=== PATIENT | female | born 1975 | race Caucasian/White ===

== ENCOUNTER 2018-08-12 13:40 | Emergency (ER) | payer BC, MEDICARE ==
[~2018-08-12] VITALS: Ht 162.6 cm; Wt 76.8 kg
--- OUTSIDE RECORDS SUMMARY | ~2018-08-12 | XMS | Encounter Summary ---
Demographics + + + | Address | [address] | | | [place] [address] | + + + | Home Phone | | + + + | Preferred Language | Unknown | + + + | Marital Status | | + + + | Druze Affiliation | Unknown | + + + | Race | Unknown | + + + | Ethnic Group | Unknown | + + + Author + + + | Author | [facility] | + + + | Organization | [facility] | + + + | Address | Unknown | + + + | Phone | Unavailable | + + + Support + + +---------+ + | Name | Relationship | Address | Phone | + + +---------+ + | Kannan Orourke | ECON | Unknown | | + + +---------+ + | Heike Orourke | ECON | Unknown | | + + +---------+ + | Gricelda Tubbs | ECON | Unknown | | + + +---------+ + | Luciana,Sherron | ECON | Unknown | | + + +---------+ + Care Team Providers + +------+ + | Care Motor Bus Driver Name | Role | Phone | + +------+ + | Dax Solis MD | PCP | | + +------+ + Encounter Details +--------+ + + + + | Date | Type | Department | Care Team | Description | +--------+ + + + + | 06/13/ | Telephone | [facility] | Abena Dent MD | | | 2018 | | Endocrinology [address] | [address] | | | | | [address] | [place], [place] | | | | | [place], [place] | [address] | | | | | [address] | | | | | | [phone] | | | +--------+ + + + + Social History + +-------+ +--------+------+ | Tobacco Use | Types | Packs/Day | Years | Date | | | | | Used | | + +-------+ +--------+------+ | Never Smoker | | | | | + +-------+ +--------+------+ + +---+---+---+ | Smokeless Tobacco: | | | | | Never Used | | | | + +---+---+---+ + + + | Sex Assigned at | Date Recorded | | | | + + + | Not on file | | + + + as of this encounter Plan of Treatment Not on fileas of this encounter Visit Diagnoses Not on filein this encounter"
--- OUTSIDE RECORDS SUMMARY | ~2018-08-12 | XMS | Encounter Summary ---
Demographics + + + | Address | [address] | | | [place] [address] | + + + | Home Phone | | + + + | Preferred Language | Unknown | + + + | Marital Status | | + + + | Protestant Affiliation | Unknown | + + + | Race | Unknown | + + + | Ethnic Group | Unknown | + + + Author + + + | Author | [facility] | + + + | Organization [...] Team Providers + +------+ + | Care Human Resources Office Manager Name | Role | Phone | + +------+ + | Alma Larson PA-C | PCP | | + +------+ + Reason for Visit + + + | Reason | Comments | + + + | Labs Only | DOS 10/01/2017 | + + + Encounter Details +--------+ + + + + | Date | Type | Department | Care Team | Description | +--------+ + + + + | 05/20/ | Documentati | [facility] | Mariah Enciso | Labs Only (DOS | | 2019 | on Only | Endocrinology [address] | TELEGRAPHIC SERVICE DISPATCHER | 10/01/2017) | | | | [address] | | | | | | [place] | | | | | | [address] | | | | | | [phone] | | | +--------+ + + + [...]
--- OUTSIDE RECORDS SUMMARY | ~2018-08-12 | XMS | Clinical Summary ---
Demographics + + + | Address | [address] | | | [place] [address] | + + + | Home Phone | | + + + | Preferred Language | Unknown | + + + | Marital Status | | + + + | Confucianism Affiliation | Unknown | + + + | Race | Unknown | + + + | Ethnic Group | Unknown | + + + Author + + + | Author | [facility] | + + + | Organization | [facility] | + + + | Address | Unknown | + + + | Phone | Unavailable | + + + Support + + +---------+ + | Name | Relationship | Address | Phone | + + +---------+ + | Kannan Mcdonald | ECON | Unknown | | + + +---------+ + | Heike Mcdonald | ECON | Unknown | | + + +---------+ + | Gricelda Tubbs | ECON | Unknown | | + + +---------+ + | Detailed,Message | ECON | Unknown | | + + +---------+ + Care Team Providers + +------+ + | Care Group Reservations Coordinator Name | Role | Phone | + +------+ + | Dax Solis MD | PP | | + +------+ + Allergies + + + + + + | Active Allergy | Reactions | Severity | Noted | Comments | | | | | Date | | + + + + + + | Bee Venom | Swelling | Medium | 06/10/19 | | | | | | 19 | | + + + + + + | Doxycycline | Other (See Comments) | Medium | 02/29/20 | unknown | | | | | 15 | | + + + + + + | Hydrocodone | Other (See Comments) | Medium | // | vomit | | | | | 15 | | + + + + + + | Oyster Extract | Rash | Medium | 10/24/19 | | | | | | 11 | | + + + + + + | Penicillins | Other (See Comments) | Medium | //20 | Unknown | | | | | 15 | | + + + + + + | Sulfa Antibiotics | Other (See Comments) | Medium | 02/29/20 | Unknown | | | | | 15 | | + + + + + + Current Medications + + +---------+---------+------+------+-------+ | Prescription | Sig. | Disp. | Refills | Star | End | Statu | | | | | | t | Date | s | | | | | | Date | | | + + +---------+---------+------+------+-------+ | montelukast | Take 10 mg by mouth | | | | | Activ | | (SINGULAIR) 10 MG | nightly. | | | | | e | | tablet | | | | | | | + + +---------+---------+------+------+-------+ | letrozole (FEMARA) | Take 2.5 mg by mouth | | | | | Activ | | 2.5 MG tablet | daily. | | | | | e | + + +---------+---------+------+------+-------+ | Pseudoephedrine | Take by mouth. | | | | | Activ | | HCl 240 MG TB24 | | | | | | e | + + +---------+---------+------+------+-------+ | Zoledronic Acid | Inject into the | | | | | Activ | | (ZOMETA IV) | vein. | | | | | e | + + +---------+---------+------+------+-------+ | naproxen sodium | Take 220 mg by mouth | | | | | Activ | | (ANAPROX) 220 MG | 2 (two) times daily | | | | | e | | tablet | with meals. | | | | | | + + +---------+---------+------+------+-------+ | levothyroxine | Take 1 tablet by | 100 | 3 | 11/0 | 11/0 | Activ | | (SYNTHROID) 100 MCG | mouth every morning | tablet | | /20 | 11/03 | e | | tabletIndications: | before breakfast. | | | 18 | 19 | | | Postoperative | Plus one extra half | | | | | | | hypothyroidism | pill per week | | | | | | + + +---------+---------+------+------+-------+ | busPIRone (BUSPAR) | Take 10 mg by mouth | | | | | Activ | | 10 MG tablet | as needed. | | | | | e | + + +---------+---------+------+------+-------+ | ALPRAZolam (XANAX) | Take 0.25 mg by | | | | | Activ | | 0.25 MG tablet | mouth as needed for | | | | | e | | | Anxiety. | | | | | | + + +---------+---------+------+------+-------+ | Ketorolac | Inject as directed | | | | | Activ | | Tromethamine | as needed. | | | | | e | | (TORADOL IJ) | | | | | | | + + +---------+---------+------+------+-------+ | ondansetron | Take 4 mg by mouth | | | | | Activ | | (ZOFRAN) 4 MG tablet | as needed for | | | | | e | | | Nausea. | | | | | | + + +---------+---------+------+------+-------+ | vitamin D2, | Take 1 capsule by | 12 | 3 | 01/2 | | Activ | | ergocalciferol, | mouth once a week. | capsule | | 5/20 | | e | | 35004 units | | | | 19 | | | | capsuleIndications: | | | | | | | | Postoperative | | | | | | | | hypothyroidism, | | | | | | | | Vitamin D | | | | | | | | deficiency, IFG | | | | | | | | (impaired fasting | | | | | | | | glucose) | | | | | | | + + +---------+---------+------+------+-------+ | liothyronine | Take 2 tablets by | 180 | 3 | 01/2 | | Activ | | (CYTOMEL) 5 MCG | mouth daily. | tablet | | 10/03 | | e | | tabletIndications: | | | | 19 | | | | Postoperative | | | | | | | | hypothyroidism | | | | | | | + + +---------+---------+------+------+-------+ Active Problems + + + | Problem | Noted Date | + + + | Dysphagia | 10/06/2017 | + + + | Eosinophilic esophagitis | 10/06/2017 | + + + | Epigastric pain | 10/06/2017 | + + + | Lymphedema | 10/06/2017 | + + + | Postoperative hypothyroidism | 07/01/2015 | + + + | Other nonspecific findings on examination of blood(790.99) | 03/26/2011 | + + + | Adenocarcinoma of breast (HCC) | 10/23/2010 | + + + | Allergic rhinitis due to pollen | 10/23/2010 | + + + | Asthma | 10/23/2010 | + + + | Hx of cholecystectomy | 10/23/2010 | + + + | Malignant neoplasm of female breast (HCC) | 05/17/2009 | + + + Encounters +--------+ + + + + | Date | Type | Specialty | Care Team | Description | +--------+ + + + + | 06/13/ | Telephone | | Abena Dent MD | | | 2019 | | | | | +--------+ + + + + | 06/10/ | Office | | Abena Dent MD | Postoperative | | 2018 | Visit | | | hypothyroidism | | | | | | (Primary Dx); | | | | | | Vitamin D | | | | | | deficiency; IFG | | | | | | (impaired fasting | | | | | | glucose); | | | | | | Hypercalcemia | +--------+ + + + + | 06/10/ | Telephone | | Sulema Whitaker, | | | 2019 | | | PROPOSAL SPECIALIST | | +--------+ + + + + | 05/20/ | Documentati | | Mariah Enciso, | Labs Only (DOS | | 2019 | on Only | | PROPOSAL SPECIALIST | 10/01/2017) | +--------+ + + + + from Last 3 Months Social History + +-------+ +--------+------+ | Tobacco [...] on file | | + + + Last Filed Vital Signs + + + + | Vital Sign | Reading | Time Taken | + + + + | Blood Pressure | 106/68 | 06/10/2018 10:25 AM PST | + + + + | Pulse | 78 | 06/10/2018 10:25 AM PST | + + + + | Temperature | - | - | + + + + | Respiratory Rate | - | - | + + + + | Oxygen Saturation | 100% | 06/10/2018 10:25 AM PST | + + + + | Inhaled Oxygen | - | - | | Concentration | | | + + + + | Weight | 77.1 kg (170 lb) | 06/10/2018 10:25 AM PST | + + + + | Height | - | - | + + + + | Body Mass Index | - | - | + + + + Plan of Treatment + + + + + | Health Maintenance | Due Date | Last Done | Comments | + + + + + | Vaccine: | | | | | Dtap/Tdap/Td (1 - | 7 | | | | Tdap) | | | | + + + + + | Vaccine: | | | | | Pneumococcal 19-64 | 7 | | | | Highest Risk (1 of 3 | | | | | - PCV13) | | | | + + + + + | Cervical Cancer | | | | | Screening (Pap) | 8 | | | + + + + + | Vaccine: Influenza | | | | | (#1) | 8 | | | + + + + + Results Not on filefrom Last 3 Months Insurance + +--------+ +------+-------+ + | Payer | Benefi | Subscriber | Type | Phone | Address | | | t Plan | ID | | | | | | / | | | | | | | Group | | | | | + +--------+ +------+-------+ + | PREMERA | PREMER | [id number] | | | [address] [address] | | | [place] | | | | [place] | | | [place] | | | | [address] | | | FED | | | | | | | PPO | | | | | + +--------+ +------+-------+ + | MEDICARE | MEDICA | [id number] | | | [address] | | | RE | | | | [place] [address] | | | IP-OP | | | | | + +--------+ +------+-------+ + + +--------+ +--------+ + + | Guarantor Name | Accoun | Relation to | Date | Phone | Billing Address | | | t Type | Patient | of | | | | | | | | | | + +--------+ +--------+ + + | JONAS MCDONALD | Person | Self [birth year] | Home: | [address] | | | al/Fam | | 1975 | [phone] | [place] [address] | | | zhen | | | [phone] | | + +--------+ +--------+ + +"
--- OUTSIDE RECORDS SUMMARY | ~2018-08-12 | XMS | Encounter Summary ---
Demographics + + + | Address | [address] | | | [place] [address] | + + + | Home Phone | | + + + | Preferred Language | Unknown | + + + | Marital Status | | + + + | Muslim Affiliation | Unknown | + + + | Race | Unknown | + + + | Ethnic Group | Unknown | + + + Author + + + | Author | [facility] | + + + | Organization [...] Team Providers + +------+ + | Care Camera Mechanic Name | Role | Phone | + [...] + + | 05/20/ | Documentati | [facility] | Mariah Enciso | Labs Only (DOS | | 2019 | on Only | Endocrinology [address] | LAYOUT WORKER | 10/01/2017) | | | | [address] | | | | | | [place] | | | | | | [address] | | | | | | [phone] | | | +--------+ + + + [...]
--- OUTSIDE RECORDS SUMMARY | ~2018-08-12 | XMS | Encounter Summary ---
Demographics + + + | Address | [address] | | | [place] [address] | + + + | Home Phone | | + + + | Preferred Language | Unknown | + + + | Marital Status | | + + + | Hindu Affiliation | Unknown | + + + | Race | Unknown | + + + | Ethnic Group | Unknown | + + + Author + + + | Author | [facility] | + + + | Organization [...] Team Providers + +------+ + | Care Supervisor Cabinetmaker Name | Role | Phone | + +------+ + | Dax Solis MD | PCP | | + +------+ + Encounter Details +--------+ + + + + | Date | Type | Department | Care Team | Description | +--------+ + + + + | 06/13/ | Telephone | [facility] | Abena Dent MD | | | 2018 | | Endocrinology [address] | [address] | | | | | [address] | [place], [place] | | | | | [place], [place] | [address] | | | | | [address] | | | | | | [phone] | | | +--------+ + + + [...]
--- OUTSIDE RECORDS SUMMARY | ~2018-08-12 | XMS | Clinical Summary ---
Demographics + + + | Address | [address] | | | [place] [address] | + + + | Home Phone | | + + + | Preferred Language | Unknown | + + + | Marital Status | | + + + | Gnosticism Affiliation | Unknown | + + + | Race | Unknown | + + + | Ethnic Group | Unknown | + + + Author + + + | Author | [facility] | | | and [place] | + + + | Organization | [facility] | | | and [place] | + + + | Address | Unknown | + + + | Phone | Unavailable | + + + Support + + + + + | Name | Relationship | Address | Phone | + + + + + | Heike Alan | ECON | [address] | | | | | [place] [address] | | + + + + + | Jose Mcdonald | ECON | [address] | | | | | [place] [address] | | + + + + + | Kannan Mcdonald | ECON | Unknown | Unavailable | + + + + + | Heike Mcdonald | ECON | Unknown | | + + + + + Care Team Providers + +------+ + | Care Early Childhood Associate Name | Role | Phone | + +------+ + PP | Unavailable | + +------+ + Allergies Not on File Current Medications Not on file Active Problems Not on file Social History + +-------+ +--------+------+ | Tobacco Use | Types | Packs/Day | Years | Date | | | | | Used | | + +-------+ +--------+------+ | Never Assessed | | | | | + +-------+ +--------+------+ + + + | Sex Assigned at | Date Recorded | | | | + + + | Not on file | | + + + Plan of Treatment + [...] filefrom Last 3 Months Insurance + +--------+ +--------+ +---------+ | Payer | Benefi | Subscriber | Type | Phone | Address | | | t Plan | ID | | | | | | / | | | | | | | Group | | | | | + +--------+ +--------+ +---------+ | MEDICARE | MEDICA | [id number] | Medica | [phone] | | | RE | | re | [phone] | | | | PART A | | | | | | | AND B | | | | | + +--------+ +--------+ +---------+ | HEALTHCOMP | HEALTH | [id number] | PPO | [phone] | | | COMP | | [phone] | | | | PPO | | | | | + +--------+ +--------+ +---------+ + +--------+ +--------+ + + | Guarantor Name | Accoun | Relation to | Date | Phone | Billing Address | | | t Type | Patient | of | | | | | | | | | | + +--------+ +--------+ + + | JONAS MCDONALD | Person | Self [birth year] | Work: | [address] | | | al/[place]ron | | 1975 | [phone] | [place] [address] | | | [place] | | | [phone]: | | | | | | | | | | | | | | [phone] | | | | | | | [phone] | | + +--------+ +--------+ + +"
--- OUTSIDE RECORDS SUMMARY | ~2018-08-12 | XMS | Encounter Summary ---
Demographics + + + | Address | [address] | | | [place] [address] | + + + | Home Phone | | + + + | Preferred Language | Unknown | + + + | Marital Status | | + + + | Yazidism Affiliation | Unknown | + + + | Race | Unknown | + + + | Ethnic Group | Unknown | + + + Author + + + | Author | [facility] | + + + | Organization [...] Team Providers + +------+ + | Care Automotive Leasing Sales Representative Name | Role | Phone | + +------+ + | Dax Solis MD | PCP | | + +------+ + Encounter Details +--------+ + + + + | Date | Type | Department | Care Team | Description | +--------+ + + + + | 06/10/ | Telephone | [facility] | Sulema Whitaker, | | | 2018 | | Endocrinology [address] | MACHINE HOOP MAKER HELPER | | | | | [address] | | | | | | [place], [place] | | | | | | [address] | | | | | | [phone] | | | +--------+ + + + [...]
--- OUTSIDE RECORDS SUMMARY | ~2018-08-12 | XMS | Clinical Summary ---
Demographics + + + | Address | [address] | | | [place] [address] | + + + | Home Phone | | + + + | Preferred Language | Unknown | + + + | Marital Status | | + + + | Temple Affiliation | Unknown | + + + | Race | Unknown | + + + | Ethnic Group | Unknown | + + + Author + + + | Author | [facility] | | | and [place] | + + + | Organization | [facility] | | | and [place] | + + + | Address | Unknown | + + + | Phone | Unavailable | + + + Support + + + + + | Name | Relationship | Address | Phone | + + + + + | Heike Alan | ECON | [address] | | | | | [place] [address] | | + + + + + | Jose Mcdonald | ECON | [address] | | | | | [place] [address] | | + + + + + | Kannan Mcdonald | ECON | Unknown | Unavailable | + + + + + | Heike Mcdonald | ECON | Unknown | | + + + + + Care Team Providers + +------+ + | Care Ripening Room Attendant Name | Role | Phone | + [...] +--------+ +---------+ | MEDICARE | MEDICA | [id number] | Medica | [phone] | | | | RE | | re | [phone] | | | | PART A | | | | | | | AND B | | | | | + +--------+ +--------+ +---------+ | HEALTHCOMP | HEALTH | [id number] | PPO | [phone] | | [...] | Self [birth year] | Work: | [address] | | | al/Tyron | | 1975 | [phone] | [place] [address] | | | [place] | | | [phone]: | | | | | | | | | | | | | | [phone] | | | | | | | [phone] | | + +--------+ +--------+ + +"
--- OUTSIDE RECORDS SUMMARY | ~2018-08-12 | XMS | Encounter Summary ---
Demographics + + + | Address | [address] | | | [place] [address] | + + + | Home Phone | | + + + | Preferred Language | Unknown | + + + | Marital Status | | + + + | Mormon Affiliation | Unknown | + + + | Race | Unknown | + + + | Ethnic Group | Unknown | + + + Author + + + | Author | [employer] | + + + | Organization [...] | | + + +---------+ + | Luciana,Message | ECON | Unknown | | + + +---------+ + Care Team Providers + +------+ + | Care Customer Orders Clerk Name | Role | Phone | + +------+ + | Dax Solis MD | PCP | | + +------+ + Reason for Visit + + + | Reason | Comments | + + + | Hypothyroidism | bowel, fatigue, hair loss | + + + Encounter Details +--------+---------+ + + + | Date | Type | Department | Care Team | Description | +--------+---------+ + + + | 06/10/ | Office | [facility] | Abena Dent MD | Postoperative | | 2019 | Visit | Endocrinology [address] | [address] | hypothyroidism | | | | [address] | [place], [place] | (Primary Dx); | | | | [place], [place] | [phone] | Vitamin D | | | | [address] | | deficiency; IFG | | | | [phone] | | (impaired fasting | | | | | | glucose); | | | | | | Hypercalcemia | +--------+---------+ + + + Social History + +-------+ [...] + + + as of this encounter Last Filed Vital Signs + + + [...] | - | + + + + in this encounter Instructions Patient Instructions - Abena Dent MD - 06/10/2018 10:30 AM PSTLabs again in 3 months ( printed orders) - we will notify you of results and recommendations Return in December with labs prior as well (printed orders) Start 71181 units weekly ergocalciferol. Stop over the counter vitD3 Liothyronine change to 5mcg twice daily (12-2pm for the second dose) Continue the 7.5 pills per week of the levothyroxine. We will notify you of the results of the A1c. I suspect that if its running high then first recommendation will be to cut back on the oranges. Carbohydrate book - try to target 60-80 grams of carb total per day.in this encounter Progress Notes Abena Dent MD - 06/10/2018 10:30 AM PSTFormatting of this note may be different from t neida original. Subjective: Patient ID: Cyndy Orourke is a 42 y.o. female with PMHx significant for hypothyroidism s/p total thyroidectomy in 2011= benign, breast cancer s/p bilateral mastectomy and reconstr uction, eosinophilic esophagitis here for evaluation and management of hypothyroidism, vitam in D defcieincy c/o fatigue Last seen 10/06/17 Interval events: "I dont feel anxious. But my heart will start to race for no reason. My watch said 140s. I have strange sensations in my chest at the same time." +Increase constipation and hair loss. In Mar increased LT4 to 7.5 ppw of the 100mcg tabs - no difference in symptoms "maybe not a s sluggish" vitD was also low on labs in Mar. One year ago had another tumor removed and breast reconstruction, and then Energy is "difficult to say" chronic insomnia - "its not worse" Was recently given zometa (every 6 months) Last Dec 2017 - due again July 22 2018 Current medications LT4 100mcg 7.5pills per week. LT3 15mcg in the Am - has not been taking the 4th optional pill in the afternoon. Adherence: 100% --> has alarms set on the phone. Administration: proper Taking calcium and vitD "when I remember" unaccompanied Thyroid Problem Presents for follow-up visit. The condition has lasted for 15 years. Symptoms include depre ssed mood, fatigue, hair loss and weight gain. Patient reports no anxiety, cold intolerance, constipation, diaphoresis, diarrhea, dry skin, heat intolerance, nail problem, palpitations , tremors or weight loss. Menstrual problem: s/p TAHBSO. Past treatments include levothyroxi ne. Prior procedures include thyroidectomy. PREVIOUSLY OBTAINED INFORMATION Had hypothyroidism from [facility] since 1999 - started LT4 at that time Then 2011 when she was undergoing treatment for breast cancer thyroid was +PET --> final pa thology was benign. Didn't require a dose change after LT4 has been 88-125 with 15-25 mcg of cytomel Has been on cytomel since 2008. LT4 : 88mcg daily generic LT3 : 15mcg daily Adherence: 100% Administration: proper The above meds = TSH 3.83 in December. Has had different physicians managing her thyroid over the past few years. "The cancer drug takes my energy so I dont know" - "I get up between 4-5am, I have energy u ntil 11-12 am which is not how I used to be before the cancer" "I prefer to run a little hyper" Having some intermittent racing episodes and intermittent chest pains - last a few seconds - it doesn't happen everyday. Initially had significant weight gain in 2013 - "when he switched my chemo drug I gained qu ickly" +chronic insomnia +intermittent tremors with no clear trigger +mild hair loss. +"random" perioral tingling - "it was bad for awhile, but its kind of gotten better" Accompanied by mother The following portions of the patient's history were reviewed and updated as appropriate: a llergies, current medications, past family history, past medical history, past social histor y, past surgical history and problem list. Review of Systems Constitutional: Positive for fatigue and weight gain. Negative for activity change, appetit e change, diaphoresis, unexpected weight change and weight loss. HENT: Negative for hearing loss, postnasal drip, rhinorrhea, sore throat, trouble swallowin g and voice change. Eyes: Negative for redness and visual disturbance. Respiratory: Negative for cough, choking, chest tightness and shortness of breath. Cardiovascular: Negative for chest pain, palpitations and leg swelling. Gastrointestinal: Negative for abdominal distention, abdominal pain, constipation, diarrhea , nausea and vomiting. Endocrine: Negative for cold intolerance and heat intolerance. Genitourinary: Negative for dysuria, frequency and urgency. Menstrual problem: s/p TAHBSO. Musculoskeletal: Positive for arthralgias, back pain and myalgias. Negative for gait proble m, joint swelling, neck pain and neck stiffness. Skin: Negative for rash and wound. Neurological: Positive for headaches (migraines). Negative for dizziness, tremors, syncope, light-headedness and numbness. Psychiatric/Behavioral: Positive for decreased concentration, dysphoric mood and sleep dist urbance. The patient is not nervous/anxious. Objective: Physical Exam Constitutional: She is oriented to person, place, and time. She appears well-developed and well-nourished. No distress. HENT: Head: Normocephalic and atraumatic. Right Ear: External ear normal. Left Ear: External ear normal. Nose: Nose normal. Mouth/Throat: Oropharynx is clear and moist. No oropharyngeal exudate. Eyes: Pupils are equal, round, and reactive to light. Conjunctivae and EOM are normal. Righ t eye exhibits no discharge. Left eye exhibits no discharge. No scleral icterus. Wearing glasses No proptosis, lid lag, or scleral injection noted Neck: Normal range of motion. Neck supple. No JVD present. No tracheal deviation present. N o thyromegaly present. Well healed anterior cervical scar from total thyroidectomy, no plap LAD, NTTP Cardiovascular: Normal rate, regular rhythm, normal heart sounds and intact distal pulses. Exam reveals no gallop and no friction rub. No murmur heard. Pulmonary/Chest: Effort normal and breath sounds normal. No stridor. No respiratory distres s. She has no wheezes. She has no rales. She exhibits no tenderness. Abdomina/Gl: Soft. Bowel sounds are normal. She exhibits no distension and no mass. There i s no tenderness. There is no rebound and no guarding. Musculoskeletal: Normal range of motion. She exhibits edema (mild BUE). She exhibits no ten derness. Lymphadenopathy: She has no cervical adenopathy. Neurological: She is alert and oriented to person, place, and time. She has normal reflexes . She displays normal reflexes. No cranial nerve deficit. She exhibits normal muscle tone. C oordination normal. No tremor with outstretched hands Skin: Skin is warm and dry. No rash noted. She is not diaphoretic. No erythema. No pallor. Psychiatric: She has a normal mood and affect. Her behavior is normal. Judgment and thought content normal. Nursing note and vitals reviewed. 10/27/13 TSH 0.298 12/24/14 FT4 0.8 vitD 39 Mag 1.8 TSH 3.83 CMP WNL vitD 39 05/15/15 TSH 3.38 FT4 1.01 FT3 2.86 Ferritin 59 B12 736 06/28/15 TSH 0.97 FT4 1.07 FT3 2.73 07/13/16 CMP WNL, FBG 83 TSH 0.16 FT4 1.0 FT3 2.89 CBC WNL 09/10/16 TSH 0.87 FT4 1.07 FT3 3.13 vitD 23 10/01/17 TSH 1.15 FT4 1.31 FT3 2.55 CBC WNL A1c 5.4% CMP WNL 03/21/18 TSH 3.27 FT4 1.03 FT3 2.64 vitD 17 CBC WNL CMP WNL 06/07/18 CMP notable for BG 118 (fasting?) vitD 25 CBC WBL Assessment and Plan: 42 y.o. female with PMHx significant for hypothyroidism s/p total thyroidectomy in 2012, br [place] cancer s/p bilateral mastectomy and reconstruction, eosinophilic esophagitis here for e valuation and management of hypothyroidism, vitamin D deficiency, c/o fatigue Hypothyroidism: longstanding 2/2 hashimotos initially, then had total thyroidectomy in 2011 when thyroid was noted to be PET+ during treatment for breast cancer. Final pathology derrek n. -continue LT4 100mcg 7.5 pills per week -decrease cytomel to 5 mcg BID -labs again before the next appointment -discussed that use of cytomel adjunct is not officially part of traditional guidelines, bu t there have been recent clinical trials, expert opinion articles demonstrating potential us e in some patients. Additionally there appears to be biochemical data demonstrating the gigi roger does not have receptor for LT4 making small doses of LT3 potentially reasonable in patient s with neurologic complaints. Counseled that she may experience side effects including tremo rs, palpitations, increased anxiety, hot flashes etc. They should contact the office if this occurs. -discussed proper administration -pt counseled regarding potential health ramifications of penitentiary overmedication with thyr oid hormone including afib/stroke and osteoporosis/fractures. Pt has also been counseled on the signs and symptoms of overmedication+undermedication with thyroid hormone and will call our office if experiencing any of these. Fatigue: unclear etiology, likely multifactorial -thyroid optimization as above and vitamin D optimization as below H/o vitamin d deficiency -check labs intermittently -encouraged more regular intake of calcium -start weekly ergocalciferol 85388 units - this pts preference due to adherence concerns fo r daily supplements IFG: also h/o reactive hypoglycemia and strong family history of T2DM -check A1c intermittently -counseled regarding lifestyle recommendations, provided pamphlet re: low carb diet, carb c ounting etc. Remainder of patients medical conditions to be managed by primary care physician and other involved specialists. RTC 6 months with labs one week prior We will call with the results of the lab evaluations in the interim to discuss any recommen dations at that time regarding medications, follow up, and future lab work. The patient voiced understanding and agreement with these plans and had no questions after our discussion. They were encouraged to call if there are any other questions or concerns in the future. I spent 25 minutes with this patient. Greater than 50% of the time (15 min) was spent in co unseling as detailed above. Cyndy was seen today for hypothyroidism. Postoperative hypothyroidism - Comprehensive metabolic panel; Future - CBC w/auto diff (reflex to manual); Future - TSH; Future - Free T4; Future - Free T3; Future - Vitamin D,25 hydroxy; Future - Comprehensive metabolic panel; Future - CBC w/auto diff (reflex to manual); Future - TSH; Future - Free T4; Future - Free T3; Future - Vitamin D,25 hydroxy; Future - vitamin D2, ergocalciferol, 96120 units capsule; Take 1 capsule by mouth once a week. - liothyronine (CYTOMEL) 5 MCG tablet; Take 2 tablets by mouth daily. - Cortisol, AM; Future - Lipid panel; Future - Glycohemoglobin A1c; Future Vitamin D deficiency - Comprehensive metabolic panel; Future - CBC w/auto diff (reflex to manual); Future - TSH; Future - Free T4; Future - Free T3; Future - Vitamin D,25 hydroxy; Future - Comprehensive metabolic panel; Future - CBC w/auto diff (reflex to manual); Future - TSH; Future - Free T4; Future - Free T3; Future - Vitamin D,25 hydroxy; Future - vitamin D2, ergocalciferol, 53085 units capsule; Take 1 capsule by mouth once a week. - Cortisol, AM; Future - Lipid panel; Future - Glycohemoglobin A1c; Future IFG (impaired fasting glucose) - Comprehensive metabolic panel; Future - CBC w/auto diff (reflex to manual); Future - TSH; Future - Free T4; Future - Free T3; Future - Vitamin D,25 hydroxy; Future - Comprehensive metabolic panel; Future - CBC w/auto diff (reflex to manual); Future - TSH; Future - Free T4; Future - Free T3; Future - Vitamin D,25 hydroxy; Future - vitamin D2, ergocalciferol, 72970 units capsule; Take 1 capsule by mouth once a week. - Cortisol, AM; Future - Lipid panel; Future - Glycohemoglobin A1c; Future Hypercalcemia - Comprehensive metabolic panel; Future - CBC w/auto diff (reflex to manual); Future - TSH; Future - Free T4; Future - Free T3; Future - Vitamin D,25 hydroxy; Future - Comprehensive metabolic panel; Future - CBC w/auto diff (reflex to manual); Future - TSH; Future - Free T4; Future - Free T3; Future - Vitamin D,25 hydroxy; Future - Cortisol, AM; Future - Lipid panel; Future - Glycohemoglobin A1c; Future in this encounter Plan of Treatment + +--------+ + + | Name | Priori | Associated Diagnoses | Order Schedule | | | ty | | | + +--------+ + + | Comprehensive metabolic panel | Routin | Postoperative | Expected: 09/08/2018 | | | e | hypothyroidism | (Approximate), | | | | Vitamin D deficiency | Expires: 06/10/2019 | | | | IFG (impaired | | | | | fasting glucose) | | | | | Hypercalcemia | | + +--------+ + + | CBC w/auto diff (reflex to | Routin | Postoperative | Expected: 09/08/2018 | | manual) | e | hypothyroidism | (Approximate), | | | | Vitamin D deficiency | Expires: 06/10/2019 | | | | IFG (impaired | | | | | fasting glucose) | | | | | Hypercalcemia | | + +--------+ + + | TSH | Routin | Postoperative | Expected: 09/08/2018 | | | e | hypothyroidism | (Approximate), | | | | Vitamin D deficiency | Expires: 06/10/2019 | | | | IFG (impaired | | | | | fasting glucose) | | | | | Hypercalcemia | | + +--------+ + + | Free T4 | Routin | Postoperative | Expected: 09/08/2018 | | | e | hypothyroidism | (Approximate), | | | | Vitamin D deficiency | Expires: 06/10/2019 | | | | IFG (impaired | | | | | fasting glucose) | | | | | Hypercalcemia | | + +--------+ + + | Free T3 | Routin | Postoperative | Expected: 09/08/2018 | | | e | hypothyroidism | (Approximate), | | | | Vitamin D deficiency | Expires: 06/10/2019 | | | | IFG (impaired | | | | | fasting glucose) | | | | | Hypercalcemia | | + +--------+ + + | Vitamin D,25 hydroxy | Routin | Postoperative | Expected: 09/08/2018 | | | e | hypothyroidism | (Approximate), | | | | Vitamin D deficiency | Expires: 06/10/2019 | | | | IFG (impaired | | | | | fasting glucose) | | | | | Hypercalcemia | | + +--------+ + + | Comprehensive metabolic panel | Routin | Postoperative | Expected: 12/07/2018 | | | e | hypothyroidism | (Approximate), | | | | Vitamin D deficiency | Expires: 06/10/2019 | | | | IFG (impaired | | | | | fasting glucose) | | | | | Hypercalcemia | | + +--------+ + + | CBC w/auto diff (reflex to | Routin | Postoperative | Expected: 12/07/2018 | | manual) | e | hypothyroidism | (Approximate), | | | | Vitamin D deficiency | Expires: 06/10/2019 | | | | IFG (impaired | | | | | fasting glucose) | | | | | Hypercalcemia | | + +--------+ + + | TSH | Routin | Postoperative | Expected: 12/07/2018 | | | e | hypothyroidism | (Approximate), | | | | Vitamin D deficiency | Expires: 06/10/2019 | | | | IFG (impaired | | | | | fasting glucose) | | | | | Hypercalcemia | | + +--------+ + + | Free T4 | Routin | Postoperative | Expected: 12/07/2018 | | | e | hypothyroidism | (Approximate), | | | | Vitamin D deficiency | Expires: 06/10/2019 | | | | IFG (impaired | | | | | fasting glucose) | | | | | Hypercalcemia | | + +--------+ + + | Free T3 | Routin | Postoperative | Expected: 12/07/2018 | | | e | hypothyroidism | (Approximate), | | | | Vitamin D deficiency | Expires: 06/10/2019 | | | | IFG (impaired | | | | | fasting glucose) | | | | | Hypercalcemia | | + +--------+ + + | Vitamin D,25 hydroxy | Routin | Postoperative | Expected: 12/07/2018 | | | e | hypothyroidism | (Approximate), | | | | Vitamin D deficiency | Expires: 06/10/2019 | | | | IFG (impaired | | | | | fasting glucose) | | | | | Hypercalcemia | | + +--------+ + + | Cortisol, AM | Routin | Postoperative | Expected: 09/08/2018 | | | e | hypothyroidism | (Approximate), | | | | Vitamin D deficiency | Expires: 06/10/2019 | | | | IFG (impaired | | | | | fasting glucose) | | | | | Hypercalcemia | | + +--------+ + + | Lipid panel | Routin | Postoperative | Expected: 09/08/2018 | | | e | hypothyroidism | (Approximate), | | | | Vitamin D deficiency | Expires: 06/10/2019 | | | | IFG (impaired | | | | | fasting glucose) | | | | | Hypercalcemia | | + +--------+ + + | Glycohemoglobin A1c | Routin | Postoperative | Expected: 12/07/2018 | | | e | hypothyroidism | (Approximate), | | | | Vitamin D deficiency | Expires: 06/10/2019 | | | | IFG (impaired | | | | | fasting glucose) | | | | | Hypercalcemia | | + +--------+ + + as of this encounter Visit Diagnoses + + | Diagnosis | + + | Postoperative hypothyroidism - Primary | + + | Postsurgical hypothyroidism | + + | Vitamin D deficiency | + + | Unspecified vitamin D deficiency | + + | IFG (impaired fasting glucose) | + + | Impaired fasting glucose | + + | Hypercalcemia | + +
--- OUTSIDE RECORDS SUMMARY | ~2018-08-12 | XMS | Encounter Summary ---
Demographics + + + | Address | [address] | | | [place] [address] | + + + | Home Phone | | + + + | Preferred Language | Unknown | + + + | Marital Status | | + + + | Mosque Affiliation | Unknown | + + + | Race | Unknown | + + + | Ethnic Group | Unknown | + + + Author + + + | Author | [employer] | + + + | Organization [...] Team Providers + +------+ + | Care Pickle Pumper Name | Role | Phone | + [...] + + | 06/10/ | Office | [facility] | Abena Dent MD | Postoperative | | 2019 | Visit | Endocrinology [address] | [address] | hypothyroidism | | | | [address] | [place], [place] | (Primary Dx); | | | | [place], [place] | [phone] | Vitamin D | | | | [address] | | deficiency; IFG | | | | [phone] | | (impaired fasting | | | [...] labs prior as well (printed orders) Start 60226 units weekly ergocalciferol. Stop over the counter [...] -pt counseled regarding potential health ramifications of intermediate overmedication with thyr oid hormone including afib/stroke [...] regular intake of calcium -start weekly ergocalciferol 40704 units - this pts preference due to [...] D,25 hydroxy; Future - vitamin D2, ergocalciferol, 45164 units capsule; Take 1 capsule by mouth [...] D,25 hydroxy; Future - vitamin D2, ergocalciferol, 41930 units capsule; Take 1 capsule by mouth [...] D,25 hydroxy; Future - vitamin D2, ergocalciferol, 96558 units capsule; Take 1 capsule by mouth [...]
--- OUTSIDE RECORDS SUMMARY | ~2018-08-12 | XMS | Encounter Summary ---
Demographics + + + | Address | [address] | | | [place] [address] | + + + | Home Phone | | + + + | Preferred Language | Unknown | + + + | Marital Status | | + + + | Tenriism Affiliation | Unknown | + + + | Race | Unknown | + + + | Ethnic Group | Unknown | + + + Author + + + | Author | [employer] | + + + | Organization [...] Team Providers + +------+ + | Care Tricot Knitter Name | Role | Phone | + +------+ + | Dax Solis MD | PCP | | + +------+ + Encounter Details +--------+ + + + + | Date | Type | Department | Care Team | Description | +--------+ + + + + | 06/10/ | Telephone | [facility] | Sulema Whitaker, | | | 2018 | | Endocrinology [address] | [address] [address] [employer] | | | | | [address] | | | | | | [place], [place] | | | | | | [address] | | | | | | [phone] | | | +--------+ + + + [...]
--- OUTSIDE RECORDS SUMMARY | ~2018-08-12 | XMS | Clinical Summary ---
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 | | +--------+ + + + + | 05/20/ | Documentati | | Mariah Enciso, | Labs Only (DOS | | 2019 | on Only | | PRIMER WATERPROOFING MACHINE ADJUSTER | 10/01/2017) | +--------+ + + + [...] +------+-------+ + | PREMERA | PREMER | [id number] | | | [address] [address] | | | [place] | | | | [place] | | | [place] | | | | [address] | | | FED | | | | | | | PPO | | | | | + +--------+ +------+-------+ + | MEDICARE | MEDICA | [id number] | | | [address] | | | RE | | | | [place] [address] | | | IP-OP | | | [...] | Self [birth year] | Home: | [address] | | | al/Fam | | 1975 | [phone] | [place] [address] | | | zhen | | | [phone] | | + +--------+ +--------+ + +"
[~2018-08-12 13:40] MED LIST: BUSPIRONE HCL5 MG PO; CLARITIN-D 241 EACH PO; CYTOMEL25 MCG PO; DILAUDID4 MG PO; FEMARA2.5 MG PO; FLEXERIL5 MG PO; IBUPROFEN800 MG PO; IMITREX50 MG PO; LEVOXYL100 MCG PO; SINGULAIR10 MG PO; TAMOXIFEN CITRA20 MG PO; XANAX0.25 MG PO; XOPENEX HFA15 GM IH; ZOFRAN4 MG PO; [UNRECOGNIZED DRUG - OTHER]
[2018-08-12] MEDS ORDERED: DILAUDID2 MG PO (17:04)
== END 2018-08-12 17:19 | disposition home or self-care (01) ==
LOC: ED 13:40
DX: R10.9 Unspecified abdominal pain (principal)
CPT/HCPCS: 74177; 80053; 81001; 83690; 85025; 99284-25; Q9967

== ENCOUNTER 2019-01-11 20:27 | Emergency (ER) | payer BC, MEDICARE ==
[~2019-01-11] VITALS: Ht 162.6 cm; Wt 76.7 kg
[~2019-01-11 20:27] MED LIST changes: +DILAUDID2 MG PO
[2019-01-11] MEDS ORDERED: CYTOMEL5 MCG PO (20:49)
[2019-01-11] MEDS ORDERED: PROTONIX40 MG PO (23:43)
[2019-01-11] MEDS ORDERED: ZOFRAN4 MG PO (23:43)
== END 2019-01-12 00:10 | disposition home or self-care (01) ==
LOC: ED 20:27
DX: R10.84 Generalized abdominal pain (principal); Z85.3 Personal history of malignant neoplasm of breast; E03.9 Hypothyroidism, unspecified; Z91.013 Allergy to seafood; Z88.0 Allergy status to penicillin; Z88.2 Allergy status to sulfonamides; Z91.040 Latex allergy status; Z88.5 Allergy status to narcotic agent; Z79.899 Other long term (current) drug therapy
CPT/HCPCS: 74177; 80053; 81001; 83690; 85025; 99284-25; J2405; Q9967

== ENCOUNTER 2019-05-26 06:20 | Day surgery (SDC) | payer BC, MEDICARE ==
[~2019-05-26] VITALS: Ht 162.6 cm; Wt 79.4 kg
== END 2019-05-26 11:45 | disposition home or self-care (01) ==
LOC: OPS 06:20 → DS 06:20 → OPS 07:45 → DS 07:45 → OPS 11:45
PROC: 0SBD4ZZ Excision of Left Knee Joint, Percutaneous Endoscopic Approach (ICD-10-PCS; principal; 2019-05-26)
DX: S83.232A Complex tear of medial meniscus, current injury, left knee, initial encounter (principal); M94.262 Chondromalacia, left knee; E03.9 Hypothyroidism, unspecified; F41.9 Anxiety disorder, unspecified; J45.909 Unspecified asthma, uncomplicated; G43.909 Migraine, unspecified, not intractable, without status migrainosus; F32.9 Major depressive disorder, single episode, unspecified; E66.01 Morbid (severe) obesity due to excess calories; Z79.899 Other long term (current) drug therapy; Z88.2 Allergy status to sulfonamides; Z88.0 Allergy status to penicillin; Z88.1 Allergy status to other antibiotic agents; Z91.040 Latex allergy status; Z88.8 Allergy status to other drugs, medicaments and biological substances; Z68.29 Body mass index [BMI] 29.0-29.9, adult
CPT/HCPCS: J0690; J1100; J1885; J2250; J2405; J2704; J3010

== ENCOUNTER 2021-11-25 08:35 | Emergency (ER) | payer BC, MEDICARE ==
[~2021-11-25] VITALS: Ht 162.6 cm; Wt 73.5 kg
[~2021-11-25 08:35] MED LIST changes: +ASPIRIN EC325 MG PO; +CYTOMEL5 MCG PO; +ESTRING1 EACH VAGINAL; +GABAPENTIN100 MG PO; +HYDROMORPHONE HC4 MG PO; +KETOROLAC TROME10 MG PO; +ONDANSETRON HCL4 MG PO; +POLYETHYLENE GL17 GM PO; +PROTONIX40 MG PO; +SENNA LAX8.6 MG PO; +VITAMIN D21250 MCG PO
--- OUTSIDE RECORDS SUMMARY | 2021-11-25 08:38 | XMS ---
PreManage Notification: JONAS MCDONALD Security Power Barker Operator Events No recent Security Events currently on file CRITERIA MET - [facility] CARE PROVIDERS JOHANN Hale MD,RUTHY Rubber Goods Finisher/Plate Washer Current PHONE: [phone] Donna Mcnally-Geoffrey Nurse Practitioner: Family Current PHONE: [phone] Harpreet has no Care Guidelines for this patient. Emiliano VISIT COUNT (12 MO.) 1 [facility] TOTAL 1 NOTE: Visits indicate total known visits. ED/UCC VISIT TRACKING (12 MO.) 11/25/2021 08:[address] [facility] [place] TYPE: Emergency COMPLAINT: - L FOOT PAIN INPATIENT VISIT TRACKING (12 MO.) No inpatient visits to display in this time frame [email or web address]
== END 2021-11-25 10:41 | disposition home or self-care (01) ==
LOC: ED 08:35
DX: S92.512A Displaced fracture of proximal phalanx of left lesser toe(s), initial encounter for closed fracture (principal); E03.9 Hypothyroidism, unspecified; Z88.1 Allergy status to other antibiotic agents; Z88.5 Allergy status to narcotic agent; Z91.013 Allergy to seafood; Z88.0 Allergy status to penicillin; Z88.2 Allergy status to sulfonamides; Z79.899 Other long term (current) drug therapy; Z85.3 Personal history of malignant neoplasm of breast; W22.8XXA Striking against or struck by other objects, initial encounter
CPT/HCPCS: 73630; 99283-25

== ENCOUNTER 2023-10-29 07:14 | Emergency (ER) | payer BC, MEDICARE ==
[~2023-10-29] VITALS: Ht 162.6 cm; Wt 88.2 kg
[2023-10-29] MEDS ORDERED: LEVOTHYROXINE112 MCG PO (07:35)
[2023-10-29] MEDS ORDERED: VENTOLIN HFA18 GM INH (07:36)
[2023-10-29] MEDS ORDERED: ADVAIR 250-501 EACH INH (07:37)
[2023-10-29] MEDS ORDERED: ESTRING1 EACH VAGINAL (07:37)
[2023-10-29] MEDS ORDERED: ondansetron HCL 4 MG/2 ML VIAL IV ONE (07:45)
[2023-10-29] MEDS ORDERED: SODIUM CHLORIDE 0.9% 1,000 ML IV ONE (07:45)
[2023-10-29] MEDS ORDERED: HYDROmorphone HCL 1 MG/ML SYR IV PRN (07:45)
[2023-10-29 07:48] LABS: BILIRUBIN, URINE NEGATIVE (negative); BLOOD/HGB, URINE NEGATIVE (Negative); KETONE, URINE NEGATIVE (Negative); LEUK ESTERASE, URINE NEGATIVE (negative); NITRITE, URINE NEGATIVE (negative)
[2023-10-29 08:27] LABS: BASOPHILS 0.7 % (0-2); EOSINOPHILS 4.3 % (0-6); HEMATOCRIT 39.7 % (35.0-50.0); HEMOGLOBIN 13.4 g/dL (12.0-18.0); LYMPHOCYTES 42.1 % (24-44); MCH 29.4 (27-36); MCHC 33.6 g/dl (30-36); MCV 87.5 fl (81-99); MONOCYTES 5.9 % (0-12); PLATELET COUNT 325 K/uL (140-440); RBC 4.54 M/ul (4.3-5.7); RDW 13.9 (10.5-15.0)
[2023-10-29 08:41] LABS: ALBUMIN 3.9 g/dL (3.4-5.0); ALBUMIN/GLOBULIN RATIO 1.22 (1.1-2.4); ANION GAP 14.7 (7-21); BILIRUBIN, TOTAL 0.6 ng/dL (0.2-1.0); BUN/CREATININE RATIO 12.76 (6.0-28.6); CALCIUM 8.9 mg/dL (8.5-10.1); CREATININE, SERUM 0.94 mg/dL (0.55-1.02); POTASSIUM 3.7 mmol/L (3.5-5.1); PROTEIN, TOTAL 7.1 g/dL (6.4-8.2)
[2023-10-29 09:17] VITALS: BP 140/97
== END 2023-10-29 09:20 | disposition home or self-care (01) ==
LOC: ED 07:14
PROVIDERS: Emergency Medicine
DX: R10.31 Right lower quadrant pain (principal); J45.909 Unspecified asthma, uncomplicated; E89.0 Postprocedural hypothyroidism; Z79.890 Hormone replacement therapy; Z79.899 Other long term (current) drug therapy; Z88.2 Allergy status to sulfonamides; Z91.040 Latex allergy status; Z88.5 Allergy status to narcotic agent; Z88.0 Allergy status to penicillin; Z91.013 Allergy to seafood
CPT/HCPCS: 36415; 74176; 80053; 81003; 83690; 85025; 96374; 96375; 99284-25; J1170; J2405; J7030

== ENCOUNTER 2024-09-02 19:45 | Emergency (ER) | payer BC, MEDICARE ==
[~2024-09-02] VITALS: Ht 162.6 cm; Wt 85.4 kg
[~2024-09-02 19:45] MED LIST changes: +ADVAIR 250-501 EACH INH; +LEVOTHYROXINE112 MCG PO; +VENTOLIN HFA18 GM INH
[2024-09-02] MEDS ORDERED: ASPIRIN 81 MG CHEW PO ONE (20:00)
[2024-09-02] MEDS ORDERED: NITROGLYCERIN 0.4 MG SUBL SL PRN (20:00)
[2024-09-02 20:21] LABS: BASOPHILS 0.7 % (0-2); HEMOGLOBIN 13.8 g/dL (12.0-18.0); LYMPHOCYTES 23.4 % (24-44); MCH 29.6 (27-36); MCHC 34.5 g/dl (30-36); MCV 85.6 fl (81-99); MONOCYTES 4.2 % (0-12); NEUTROPHILS 69.7 % (39-80); PLATELET COUNT 336 K/uL (140-440); RBC 4.67 M/ul (4.3-5.7); RDW 13.2 (10.5-15.0)
[2024-09-02 20:38] LABS: ALBUMIN 3.9 g/dL (3.4-5.0); ALBUMIN/GLOBULIN RATIO 1.08 (1.1-2.4); ANION GAP 13.6 (7-21); BILIRUBIN, TOTAL 0.7 mg/dL (0.2-1.0); BUN/CREATININE RATIO 16.83 (6.0-28.6); CALCIUM 9.3 mg/dL (8.5-10.1); CREATININE, SERUM 1.01 mg/dL (0.55-1.02); POTASSIUM 3.6 mmol/L (3.5-5.1); PROTEIN, TOTAL 7.5 g/dL (6.4-8.2)
[2024-09-02] MEDS ORDERED: HYDROmorphone HCL 1 MG/ML SYR IV PRN (21:00)
[2024-09-02] MEDS ORDERED: ondansetron HCL 4 MG/2 ML VIAL IV ONE (21:00)
[2024-09-02] MEDS ORDERED: HYDROmorphone HCL 2 MG HOME.PACK PO ONE (22:45)
[2024-09-02 22:55] VITALS: BP 117/74
--- NOTE | 2024-09-03 13:00 | EKG ---
[facility] [address] [facility] [place], [place] [address] Signed Sinus tachycardia Otherwise normal ECG Confirmed by Willy Norris MD ([id number]) on 09/03/2024 1:00:13 PM Electronically Signed By: WILLY NORRIS MD 09/03/24 1300 PATIENT NAME: JONAS MCDONALD Electrocardiogram DATE OF : 79 PHYSICIAN: WILLY NORRIS MD REPORT #: [id number] REPORT IS CONFIDENTIAL AND NOT TO BE RELEASED WITHOUT AUTHORIZATION
[2024-09-03] MEDS ORDERED: ONDANSETRON ODT8 MG PO (19:01)
[2024-09-03] MEDS ORDERED: CEPHALEXIN500 M1 PO (19:01)
== END 2024-09-02 22:55 | disposition home or self-care (01) ==
LOC: ED 19:45
PROVIDERS: Emergency Medicine
DX: R07.9 Chest pain, unspecified (principal); E03.9 Hypothyroidism, unspecified; J45.909 Unspecified asthma, uncomplicated; Z79.51 Long term (current) use of inhaled steroids; Z88.5 Allergy status to narcotic agent; Z88.0 Allergy status to penicillin; Z88.2 Allergy status to sulfonamides; Z91.040 Latex allergy status
CPT/HCPCS: 36415; 71045; 80053; 83735; 84484; 85025; 85379; 93005; 93010; 96374; 99285-25; A9270; J1171; J2405

== ENCOUNTER 2024-09-03 14:34 | Emergency (ER) | payer BC, MEDICARE ==
[~2024-09-03] VITALS: Ht 162.6 cm; Wt 85.0 kg
--- OUTSIDE RECORDS SUMMARY | 2024-09-03 14:41 | XMS ---
PreManage Notification: JONAS MCDONALD Security Budget Engineer Events No recent Security Events currently on file CRITERIA MET - [facility] - 2 Visits in 30 Days CARE PROVIDERS JOHANN Hale MD,RUTHY Electrical Installer/Tank Tender Current PHONE: [phone] Harpreet has no Care Guidelines for this patient. EEmile VISIT COUNT (12 MO.) 3 [facility] TOTAL 3 NOTE: Visits indicate total known visits. ED/C VISIT TRACKING (12 MO.) 09/03/2024 14:34 [facility] [place] TYPE: Emergency COMPLAINT: - LEFT CHEST PAIN 09/02/2024 19:45 [facility] TYPE: Emergency COMPLAINT: - CHEST PAIN 10/29/2023 07:15 [facility] TYPE: Emergency COMPLAINT: - ABDOMINAL PAIN DIAGNOSES: - Allergy status to narcotic agent - Allergy status to penicillin - Allergy status to sulfonamides - Allergy to seafood - Hormone replacement therapy - Latex allergy status - Other terminal press operator (current) drug therapy - Postprocedural hypothyroidism - Right lower quadrant pain - Unspecified asthma, uncomplicated INPATIENT VISIT TRACKING (12 MO.) No inpatient visits to display in this time frame [email or web address]
[2024-09-03 16:11] LABS: BASOPHILS 0.4 % (0-2); EOSINOPHILS 1.1 % (0-6); HEMATOCRIT 38.6 % (35.0-50.0); HEMOGLOBIN 13.2 g/dL (12.0-18.0); LYMPHOCYTES 25.9 % (24-44); MCH 29.9 (27-36); MCHC 34.2 g/dl (30-36); MCV 87.3 fl (81-99); MONOCYTES 8.3 % (0-12); NEUTROPHILS 64.3 % (39-80); PLATELET COUNT 292 K/uL (140-440); RBC 4.42 M/ul (4.3-5.7); RDW 13.4 (10.5-15.0)
[2024-09-03] MEDS ORDERED: CEFAZOLIN SODIUM 2 GM/20 ML SYR IV ONE (16:15)
[2024-09-03] MEDS ORDERED: ondansetron HCL 4 MG/2 ML VIAL IV ONE (16:15)
[2024-09-03] MEDS ORDERED: HYDROmorphone HCL 1 MG/ML SYR IV PRN (16:15)
[2024-09-03 16:26] LABS: ALBUMIN 3.7 g/dL (3.4-5.0); ALBUMIN/GLOBULIN RATIO 1.09 (1.1-2.4); ANION GAP 11.9 (7-21); BUN/CREATININE RATIO 15.78 (6.0-28.6); CALCIUM 8.8 mg/dL (8.5-10.1); CREATININE, SERUM 0.95 mg/dL (0.55-1.02); POTASSIUM 3.9 mmol/L (3.5-5.1); PROTEIN, TOTAL 7.1 g/dL (6.4-8.2)
[2024-09-03] MEDS ORDERED: SODIUM CHLORIDE 0.9% 1,000 ML IV ONE (18:00)
[2024-09-03] MEDS ORDERED: CEPHALEXIN MONOHYDRATE 500 MG HOME.PACK PO ONE (19:00)
[2024-09-03] MEDS ORDERED: ONDANSETRON ODT8 MG PO (19:01)
[2024-09-03] MEDS ORDERED: CEPHALEXIN500 M1 PO (19:01)
[2024-09-03 19:15] VITALS: BP 119/87
== END 2024-09-03 19:15 | disposition home or self-care (01) ==
LOC: ED 14:34
PROVIDERS: Emergency Medicine
DX: N61.0 Mastitis without abscess (principal); E03.9 Hypothyroidism, unspecified; J45.909 Unspecified asthma, uncomplicated; Z79.899 Other long term (current) drug therapy; Z88.5 Allergy status to narcotic agent; Z88.2 Allergy status to sulfonamides; Z91.013 Allergy to seafood; Z91.040 Latex allergy status; Z88.0 Allergy status to penicillin
CPT/HCPCS: 36415; 76642; 80053; 85025; 96374; 96375; 99284-25; A9270; J0690; J1171; J2405; J7030

== ENCOUNTER 2024-10-14 07:59 | Emergency (ER) | payer BC, MEDICARE ==
[~2024-10-14] VITALS: Ht 162.6 cm; Wt 85.9 kg
[~2024-10-14 07:59] MED LIST changes: +CEPHALEXIN500 M1 PO; +ONDANSETRON ODT8 MG PO
[2024-10-14 09:10] LABS: BASOPHILS 0.4 % (0.1-1.2); EOSINOPHILS 2.1 % (0.7-5.8); HEMATOCRIT 40.3 % (34.1-44.9); HEMOGLOBIN 13.3 g/dL (11.2-15.7); LYMPHOCYTES 17.1 % (19.3-51.7); MCH 29.2 PG (25.6-32.2); MCV 88.6 fL (79.4-94.8); MONOCYTES 5.6 % (4.7-12.5); NEUTROPHILS 74.6 % (34.0-71.1); PLATELET COUNT 302 K/uL (182-369); RBC 4.55 M/uL (3.93-5.22)
[2024-10-14 09:25] LABS: ALBUMIN 4.2 g/dL (3.4-5.0); ALBUMIN/GLOBULIN RATIO 1.27 (1.1-2.4); ANION GAP 9.9 (7-21); BILIRUBIN, TOTAL 0.9 mg/dL (0.2-1.0); BUN/CREATININE RATIO 13.97 (6.0-28.6); CALCIUM 9.4 mg/dL (8.5-10.1); CREATININE, SERUM 0.93 mg/dL (0.55-1.02); POTASSIUM 3.9 mmol/L (3.5-5.1); PROTEIN, TOTAL 7.5 g/dL (6.4-8.2)
[2024-10-14 10:13] LABS: ERYTHROCYTE SEDIMENTATION RATE 4
[2024-10-14] MEDS ORDERED: KETOROLAC TROMETHAMINE 15 MG/ML VIAL IV ONE (10:30)
[2024-10-14] MEDS ORDERED: ondansetron HCL 4 MG/2 ML VIAL IV ONE (11:00)
[2024-10-14] MEDS ORDERED: HYDROmorphone HCL 1 MG/ML SYR IV PRN (11:00)
[2024-10-14] MEDS ORDERED: DAPTOmycin 500 MG/10 ML VIAL IV ONE (11:30)
[2024-10-14 13:24] VITALS: BP 132/95
== END 2024-10-14 13:27 | disposition home or self-care (01) ==
LOC: ED 07:59
PROVIDERS: Emergency Medicine
DX: N61.0 Mastitis without abscess (principal); Z79.2 Long term (current) use of antibiotics; Z79.899 Other long term (current) drug therapy; Z88.0 Allergy status to penicillin; Z88.8 Allergy status to other drugs, medicaments and biological substances; Z91.013 Allergy to seafood; Z91.040 Latex allergy status; Z88.5 Allergy status to narcotic agent; Z88.2 Allergy status to sulfonamides
CPT/HCPCS: 36415; 71046; 76642; 80053; 85025; 85651; 86140; 87040; 96374; 96375; 99284-25; J0878; J1171; J1885; J2405

== ENCOUNTER 2024-12-08 18:49 | Emergency (ER) | payer BC, MEDICARE ==
[~2024-12-08] VITALS: Ht 162.6 cm; Wt 84.0 kg
[2024-12-08 19:18] LABS: BASOPHILS 1.0 % (0.1-1.2); EOSINOPHILS 6.9 % (0.7-5.8); LYMPHOCYTES 48.3 % (19.3-51.7); MCH 29.4 PG (25.6-32.2); MCHC 32.5 g/dL (32.2-35.5); MCV 90.4 fL (79.4-94.8); MONOCYTES 5.7 % (4.7-12.5); NEUTROPHILS 37.9 % (34.0-71.1); RBC 4.39 M/uL (3.93-5.22)
[2024-12-08 19:36] LABS: ALT (SGPT) 30.0 U/L (14-59); AST (SGOT) 15.0 U/L (15-37); GLOMERULAR FILTRATION RATE,EST 77.0 mL/min (>60); PROTEIN, TOTAL 7.3 g/dL (6.4-8.2); UREA NITROGEN 23.0 mg/dL (7-18)
[2024-12-08] MEDS ORDERED: POTASSIUM CHLORIDE 10 MEQ TABCR PO ONE (20:00)
[2024-12-08 20:09] LABS: BLOOD/HGB, URINE NEGATIVE (Negative); KETONE, URINE NEGATIVE (Negative); LEUK ESTERASE, URINE NEGATIVE (negative); NITRITE, URINE NEGATIVE (negative)
[2024-12-08] MEDS ORDERED: CYCLOBENZAPRINE10 MG PO (21:08)
[2024-12-08] MEDS ORDERED: CYCLOBENZAPRINE HCL 10 MG HOME.PACK PO ONE (21:15)
[2024-12-08 21:28] VITALS: BP 112/69
--- NOTE | 2024-12-09 22:35 | EKG ---
[facility] [address] [facility] [place] [address] Signed Normal sinus rhythm Normal ECG When compared with ECG of 02-SEP-2024 19:48, No significant change was found Confirmed by Jose R Johns MD () on 12/09/2024 10:34:56 PM Electronically Signed By: JOSE R JOHNS MD 12/09/242234 PATIENT NAME: JONAS MCDONALD Electrocardiogram DATE OF : 79 PHYSICIAN: JOSE R JOHNS MD REPORT #: [id number] REPORT IS CONFIDENTIAL AND NOT TO BE RELEASED WITHOUT AUTHORIZATION
== END 2024-12-08 21:30 | disposition home or self-care (01) ==
LOC: ED 18:49
PROVIDERS: Family Medicine
DX: R07.89 Other chest pain (principal); J45.909 Unspecified asthma, uncomplicated; Z88.0 Allergy status to penicillin; Z88.2 Allergy status to sulfonamides; Z88.5 Allergy status to narcotic agent
CPT/HCPCS: 36415; 71045; 80053; 81003; 83735; 84484; 85025; 85379; 93005; 93010; 99285-25; A9270